=== PATIENT | female | born 1965 | race Two or more races ===

== ENCOUNTER 2022-05-13 21:44 | Emergency (ER) | payer SELFPAY ==
[~2022-05-13] VITALS: Ht 160 cm; Wt 66.0 kg
[2022-05-13] MEDS ORDERED: KETOROLAC 15MG/ML VIAL IM ONE (22:15)
[2022-05-14] MEDS ORDERED: KETOROLAC 15MG/ML VIAL IM NR (00:45)
[2022-05-14 02:56] VITALS: BP 114/78
== END 2022-05-14 02:57 | disposition home or self-care (01) ==
LOC: ER 21:44
DX: R56.9 Unspecified convulsions (principal); G89.29 Other chronic pain; F41.9 Anxiety disorder, unspecified
CPT/HCPCS: 82962; 96372; 99283; J1885